=== PATIENT | female | born 1975 | race Native Hawaiian/Other Pacific Islander ===

== ENCOUNTER 2020-07-30 10:36 | Outpatient (CLI) | payer OTHER | END 2020-07-30 22:10 | disposition home or self-care (01) | LOC: MAMMO 10:36 | PROVIDERS: ATTEND Obstetrics & Gynecology | DX: Z12.31 Encounter for screening mammogram for malignant neoplasm of breast (principal) ==

== ENCOUNTER 2022-03-12 09:28 | Outpatient (CLI) | payer OTHER | END 2022-03-12 18:59 | disposition home or self-care (01) | LOC: MAMMO 09:28 | PROVIDERS: ATTEND Obstetrics & Gynecology | DX: Z12.31 Encounter for screening mammogram for malignant neoplasm of breast (principal) ==

== ENCOUNTER 2022-11-16 11:48 | Outpatient (CLI) | payer OTHER | END 2022-11-16 21:25 | disposition home or self-care (01) | LOC: RESP 11:48 | PROVIDERS: ATTEND Plastic Surgery | DX: Z01.812 Encounter for preprocedural laboratory examination (principal); Z01.818 Encounter for other preprocedural examination; Z01.810 Encounter for preprocedural cardiovascular examination | CPT/HCPCS: 93005 ==